=== PATIENT | female | born 1980 | race African-American/Black ===

== ENCOUNTER 2019-03-03 18:11 | Emergency (ER) | payer OTHER ==
[~2019-03-03] VITALS: Ht 165.1 cm; Wt 73.9 kg
[~2019-03-03 18:11] MED LIST: ALDACTONE25 MG PO; FISH OIL 1,001000 M2 PO; METFORMIN HCL500 MG PO; RANITIDINE 150150 M1 PO; TRINATE TABLET1 TAB PO; ZYRTEC10 M2 PO
[2019-03-03] MEDS ORDERED: ALPHAGAN P5 ML OPHTHALMIC (18:30)
[2019-03-03] MEDS ORDERED: VITAMIN D35000 UNI2 PO (18:30)
[2019-03-03] MEDS ORDERED: DIVIGEL1 GM VAG (18:31)
[2019-03-03 20:56] LABS: ABSOLUTE BASOPHILS 0.1 thou/uL (0.0-0.2); ABSOLUTE EOSINOPHILS 0.1 thou/uL (0.0-0.7); ABSOLUTE LYMPHOCYTES 1.6 thou/uL (0.8-5.3); ABSOLUTE MONOCYTES 0.4 thou/uL (0.0-1.2); ABSOLUTE NEUTROPHILS 6.9 thou/uL (1.6-8.1); BASOPHILS 0.6 %; EOSINOPHILS 0.7 %; HEMATOCRIT 38.5 % (37.0-47.0); HEMOGLOBIN 13.2 gm/dL (12.0-15.0); LYMPHOCYTES 17.4 %; MCH 31.8 pg (26.0-34.0); MCHC 34.3 g/dL (28.0-37.0); MCV 92.7 fL (80.0-100.0); MONOCYTES 4.9 %; MPV 7.9 fl. (7.2-11.1); NUCLEATED RBCS 0 /100WBC; PLATELET COUNT* 356 thou/uL (150-400); POLYS 76.4 %; RBC 4.16 mil/uL (4.20-5.00); RDW-CV 11.9 % (10.5-14.5)
[2019-03-03 21:03] LABS: CALCIUM 8.8 mg/dL (8.5-10.1); CREATININE 0.9 mg/dL (0.6-1.3); POTASSIUM 3.7 mmol/L (3.5-5.1)
[2019-03-03 21:07] LABS: ALBUMIN 3.7 g/dL (3.4-5.0); MAGNESIUM 1.8 mg/dL (1.8-2.4); TOTAL BILIRUBIN 0.3 mg/dL (<0.1-1.0); TOTAL PROTEIN 8.2 g/dL (6.4-8.2)
[2019-03-03 22:05] VITALS: BP 124/70
== END 2019-03-03 22:07 | disposition home or self-care (01) ==
LOC: M.ERS 18:11
PROVIDERS: Nurse Practitioner Family
DX: M71.21 Synovial cyst of popliteal space [Baker], right knee (principal); R60.0 Localized edema; J45.909 Unspecified asthma, uncomplicated; Z98.890 Other specified postprocedural states; Z88.5 Allergy status to narcotic agent; Z91.040 Latex allergy status